=== PATIENT | male | born 1985 | race Caucasian/White ===

== ENCOUNTER 2017-02-28 20:40 | Emergency (ER) | payer SELFPAY ==
[2017-02-28 20:55] VITALS: BP 132/79
[2017-02-28] MEDS ORDERED: SULFAMETHOXAZOLE/TRIMETHOPRIM 1 TAB TABLET PO ONE (21:11)
[2017-02-28] MEDS ORDERED: ACYCLOVIR 200 MG CAPSULE PO ONE (21:11)
[2017-02-28] MEDS ORDERED: SULFAMETHOXAZOLE/TRIMETHOPRIM 1 TAB TABLET ONE (21:18)
[2017-02-28] MEDS ORDERED: ACYCLOVIR 200 MG CAPSULE ONE (21:18)
--- NOTE | 2017-02-28 21:32 | ERNOTE ---
ENT HPI Date of Service: 02/28/17 Time Seen by Provider: 02/28/17 20:57 - Immun/Allergies/Home Medications Immunizations: IMMUNIZATION HX Immunizations Up to Date Yes History of Influenza Vaccine No Allergies/Adverse Reactions: Allergies Allergy/AdvReac Type Severity Reaction Status Date / Time No Known Allergies Allergy Verified 02/28/17 20:55 Home Medications: HOME MEDICATIONS Acyclovir [Zovirax] 400 mg PO TID #21 tablet 02/28/17 [Last Taken Unknown] Ciprofloxacin HCl/Dexameth [Ciprodex Otic Suspension] 1 drop OT BID #1 drops.susp 02/28/17 [Last Taken Unknown] Sulfamethoxazole/Trimethoprim [Bactrim Ds] 1 tab PO BID #28 tab 02/28/17 [Last Taken Unknown] - History of Present Illness Narrative: Pt. comes in with c/o B ear pain and bleeding from his ears. Pt. also states that he has an insect bite on his left lower abdomen and on his penis for three days. Pt. states that the wound on his stomach itches and the wound on his penis fontaine and the blood started after he was using Qtips to clean out his ears. Pt. denies any SOB, CP, NVD, fever, alleviating factors or prehospital treatment. Review of Systems - Review of Systems Constitutional: Present: no symptoms reported. Absent: recent illness, fever, chills, weakness, fatigue EYE: Present: no symptoms reported ENT: Present: ear pain, ear discharge - blood. Absent: nose congestion, nasal drainage, sore throat Respiratory: Present: no symptoms reported. Absent: shortness of breath, cough , wheezing Cardiology: Present: no symptoms reported. Absent: chest pain, palpitations, edema Gastrointestinal/Abdominal: Present: no symptoms reported. Absent: nausea, vomiting, diarrhea, abdominal pain Genitourinary: Present: pain - penis Musculoskeletal: Present: no symptoms reported. Absent: back pain, joint pain Skin: Present: lesions - L lower abdomen. Absent: rash Neurological: Present: no symptoms reported. Absent: headache, dizziness/light- headedness, numbness, tingling All Other Systems: All systems neg except as marked - Patient's Past Medical History Patient History - Medical: No pertinent hx Patient History - Cardiac/Respiratory: No pertinent hx Patient History - Cancer: No Hx of Cancer Patient History - Surgical Procedures: No surgical history Patient History - Other: None - Social History Living Situations: home Abuse History: No History of abuse Psych History: No pertinent hx Smoking Status: Current every day smoker Alcohol Use: rarely Drug Use: marijuana, meth - Immunizations Immunizations Up to Date: Yes History of Influenza Vaccine: No Physical Exam - Physical Exam General Appearance: Present: wd/wn, alert, no apparent distress Head Exam: Present: normal inspection, no evidence of injury Eye Exam: Normal inspection: bilateral, PERRL: bilateral, EOMI: bilateral Ears, Nose, Throat: Present: abnormal TM (R) - perf tympanic, abnormal TM (L) - perf tympanic, normal pharynx Neck: Present: normal inspection, nontender. Absent: lymphadenopathy (R), lymphadenopathy (L) Respiratory: Present: no respiratory distress, normal breath sounds, no accessory muscle use, chest nontender, lungs clear Cardiovascular/Chest: Present: regular rate, rhythm, no murmur, normal peripheral pulses Male Genitals Exam: Present: lesions - herpetic like lesion L penis tip Extremity Exam: Present: normal inspection, non-tender, normal range of motion, no edema Neurological Exam: Present: alert, oriented, normal mood/affect, no motor/ sensory deficits Skin Exam: Present: normal color, warm/dry, other - cellulitis surrounding open wound to LL abdomen 5 cm in diameter open area 2mm not fluctuant. Absent: pallor, skin rash ED Progress - Date and Time Seen: Date and Time: 02/28/17 21:31 sent herpes culture to lab but the abdominal lesion is dry so think the abdominal kin lesion is bacterial and the penile lesion is herpetic and educated pt. to not use any more Q-Tips. - Vital Signs Patient's Vital Signs:: I have reviewed the patient's vital signs. Vital Signs: Vital Signs 02/28/17 20:51 Temperature 36.4 C L Pulse Rate 109 H Respiratory 18 Rate Blood Pressure 132/79 O2 Sat by Pulse 99 Oximetry - Progress/Reassessment Chief Complaint: Earache Progress:: Unchanged Departure Clinical Impression: Herpes genitalis in men, Perforated tympanic membrane of both ears on examination, Abscess - Departure Disposition: Home self-care Condition: Good Instructions: Abscess, [id number], Genital Herpes, Tympanic Membrane Perforation-SportsMed Additional Instructions: Please folllow up with primary provider in 2-3 days. Prescriptions: Acyclovir [Zovirax] 400 mg PO TID #21 tablet Ciprofloxacin HCl/Dexameth [Ciprodex Otic Suspension] 1 drop OT BID #1 drops.susp Sulfamethoxazole/Trimethoprim [Bactrim Ds] 1 tab PO BID #28 tab
[2017-03-03 10:07] LABS: HSV 2 DNA DNR
== END 2017-02-28 21:23 | disposition home or self-care (01) ==
LOC: ER 20:40
DX: H72.93 Unspecified perforation of tympanic membrane, bilateral (principal); A60.02 Herpesviral infection of other male genital organs; L02.211 Cutaneous abscess of abdominal wall; F17.200 Nicotine dependence, unspecified, uncomplicated